=== PATIENT | female | born 1975 | race Caucasian/White ===

== ENCOUNTER 2019-01-31 07:25 | Inpatient (IN) | payer MEDICAID ==
[2019-01-27 11:20] LABS: ADD MAN DIFF? NO
[2019-01-27 11:32] LABS: BASOPHILS % 0.5 % (0.0-2.0); EOSINOPHILS # 0.3 10^3/ul (0.0-0.5); EOSINOPHILS % 4.4 % (0.0-7.0); HEMATOCRIT 39.5 % (37.0-47.0); HEMOGLOBIN 12.8 g/dl (12.0-16.0); LYMPHOCYTES # 1.7 10^3/ul (0.8-2.9); LYMPHOCYTES % 28.2 % (15.0-51.0); MEAN CORPUSCULAR HEMOGLOBIN 31.1 pg (29.0-33.0); MEAN CORPUSCULAR HGB CONC 32.4 g/dl (32.0-37.0); MEAN CORPUSCULAR VOLUME 95.9 fl (82.0-101.0); MEAN PLATELET VOLUME 9.5 fl (7.4-10.4); MONOCYTE # 0.3 10^3/ul (0.3-0.9); MONOCYTES % 5.4 % (0.0-11.0); NEUTROPHIL # 3.6 10^3/ul (1.6-7.5); NEUTROPHILS % 60.8 % (39.0-77.0); PLATELET COUNT 321 10^3/UL (140-415); RED BLOOD COUNT 4.12 10^6/ul (4.20-5.40); RED CELL DISTRIBUTION WIDTH 12.6 % (11.5-14.5)
[2019-01-27 12:01] LABS: ALANINE AMINOTRANSFERASE 31 IU/L (13-69); ALBUMIN 4.5 g/dl (3.3-4.9); ALBUMIN/GLOBULIN RATIO 1.18; ALKALINE PHOSPHATASE 56 IU/L (42-121); ANION GAP 11 (5-13); ASPARTATE AMINO TRANSFERASE 33 IU/L (15-46); BILIRUBIN,INDIRECT 0.4 mg/dl (0-1.1); BILIRUBIN,TOTAL 0.4 mg/dl (0.2-1.3); BLOOD UREA NITROGEN 17 mg/dl (7-20); CALCIUM 9.7 mg/dl (8.4-10.2); CARBON DIOXIDE 26 mmol/L (21-31); CHLORIDE 105 mmol/L (97-110); CREATININE 0.57 mg/dl (0.44-1.00); Estimated GFR > 60 mL/min (>60); GLUCOSE 93 mg/dl (70-220); SODIUM 142 mmol/L (135-144); TOTAL PROTEIN 8.3 g/dl (6.1-8.1)
[2019-01-27 12:03] LABS: INR 0.97; PARTIAL THROMBOPLASTIN TIME 27.2 Sec (23.0-35.0)
[2019-01-31] MEDS: CEFAZOLIN 1 GM/50 ML (PMX) 50 ML IVPB (09:00)
[2019-01-31] MEDS: SOD CHLORIDE 0.9% 1,000 ML IV (10:17)
[2019-01-31] MEDS ORDERED: FENTAnyl 50 MCG/ML VIAL ×2 (10:26→12:03)
[2019-01-31] MEDS ORDERED: CEFAZOLIN 1 GM INJ (10:26)
[2019-01-31] MEDS ORDERED: PROPOFOL 20 ML (10:26)
[2019-01-31] MEDS ORDERED: MIDAZOLAM 1 MG/ML 2 ML INJ (10:26)
[2019-01-31] MEDS ORDERED: FENTAnyl 50 MCG/ML VIAL IV (11:30)
[2019-01-31] MEDS ORDERED: HYDROmorphONE 1 MG/5 ML IV SYRINGE IV (11:30)
[2019-01-31] MEDS ORDERED: METOCLOPRAMIDE 10 MG INJ IV (11:30)
[2019-01-31] MEDS ORDERED: LABETALOL HCL 20MG INJ IV (11:30)
[2019-01-31] MEDS ORDERED: MEPERIDINE 25 MG INJ IV (11:30)
[2019-01-31] MEDS ORDERED: DIPHENHYDRAMINE 50 MG INJ IV (11:30)
[2019-01-31] MEDS ORDERED: OXYCODONE/ACETAMINOPHEN (5/325) TAB PO (11:30)
[2019-01-31] MEDS: ISOSULFAN BLUE 1% 5 ML INJ SC (11:43)
[2019-01-31] MEDS ORDERED: ROCURONIUM 50 MG INJ (12:03)
[2019-01-31] MEDS ORDERED: PHENYLephrine (100 MCG/ML) 10ML SYG (12:05)
[2019-01-31] MEDS ORDERED: ONDANSETRON 4 MG INJ (12:05)
[2019-01-31] MEDS ORDERED: EPHEDrine 25 MG/5 ML SYG (12:05)
[2019-01-31] MEDS ORDERED: DEXAMETHASONE 4 MG/ML 5 ML INJ (12:05)
[2019-01-31] MEDS ORDERED: METOCLOPRAMIDE 10 MG INJ (12:05)
[2019-01-31] MEDS ORDERED: GLYCOPYRROLATE 0.4 MG INJ (12:36)
[2019-01-31] MEDS ORDERED: NEOSTIGMINE 3 MG/3 ML SYRINGE (12:36)
[2019-01-31] MEDS ORDERED: ACETAMINOPHEN 1000MG/100ML IV 100 ML IVPB (13:00)
[2019-01-31] MEDS ORDERED: morphine 2 MG INJ IV (13:00)
[2019-01-31] MEDS: ONDANSETRON 4 MG INJ IV ×2 (13:08→15:19)
[2019-01-31] MEDS: HYDROmorphONE 1 MG/5 ML IV SYRINGE IV ×2 (13:08→13:13)
[2019-01-31] MEDS: FENTAnyl 50 MCG/ML VIAL IV (13:37)
[2019-01-31] MEDS: D5W-0.45 NACL + KCL 20 MEQ 1,000 ML IV ×2 (15:24→22:56)
[2019-01-31] MEDS ORDERED: PROPOFOL 200 MG INJ IV (15:53)
[2019-01-31] MEDS: CIPROFLOXACIN 500 MG TAB PO (18:57)
[2019-01-31] MEDS: HYDROCODONE/APAP (5/325) TAB PO (22:54)
[2019-02-01] MEDS ORDERED: HYDROCODONE/APAP (5/325) TAB PO (01:30)
[2019-02-01] MEDS: ZOLPIDEM 5 MG TAB PO (01:36)
[2019-02-01] MEDS: HYDROCODONE/APAP (5/325) TAB PO ×2 (03:46→12:18)
[2019-02-01] MEDS: CIPROFLOXACIN 500 MG TAB PO ×2 (06:33→17:56)
[2019-02-01] MEDS: D5W-0.45 NACL + KCL 20 MEQ 1,000 ML IV ×3 (06:33→16:10)
[2019-02-01] MEDS: ONDANSETRON 4 MG INJ IV (11:06)
== END 2019-02-01 17:58 | disposition home or self-care (01) | DRG 580 ==
LOC: SDS 07:25 → PP2 12:58
PROC: 0HBU0ZZ Excision of Left Breast, Open Approach (ICD-10-PCS; principal; 2019-01-31 11:00)
PROC: 07B60ZX Excision of Left Axillary Lymphatic, Open Approach, Diagnostic (ICD-10-PCS; 2019-01-31 11:00)
DX: C50.912 Malignant neoplasm of unspecified site of left female breast (principal); N39.0 Urinary tract infection, site not specified; R07.89 Other chest pain
CPT/HCPCS: 80053; 84703; 85025; 85610; 85730; 88307; 88331

== ENCOUNTER 2019-03-24 22:01 | Emergency (ER) | payer OTHER, MEDICAID ==
[2019-03-24] MEDS: MECLIZINE 12.5 MG TAB PO (22:41)
[2019-03-24 23:56] LABS: ADD MAN DIFF? NO
[2019-03-24] MEDS: SOD CHLORIDE 0.9% 1,000 ML IV (23:58)
[2019-03-24] MEDS: DIAZEPAM 5 MG TAB PO (23:58)
[2019-03-25 00:15] LABS: ANION GAP 12 (5-13); BLOOD UREA NITROGEN 11 mg/dl (7-20); CALCIUM 9.9 mg/dl (8.4-10.2); CARBON DIOXIDE 24 mmol/L (21-31); CHLORIDE 101 mmol/L (97-110); CREATININE 0.48 mg/dl (0.44-1.00); Estimated GFR > 60 mL/min (>60); GLUCOSE 96 mg/dl (70-220); SODIUM 137 mmol/L (135-144)
[2019-03-25 00:17] LABS: POTASSIUM 5.8 mmol/L (3.5-5.1)
[2019-03-25 00:22] LABS: BASOPHILS % 0.3 % (0.0-2.0); EOSINOPHILS # 0.2 10^3/ul (0.0-0.5); EOSINOPHILS % 1.5 % (0.0-7.0); HEMATOCRIT 42.5 % (37.0-47.0); HEMOGLOBIN 14.1 g/dl (12.0-16.0); LYMPHOCYTES # 2.2 10^3/ul (0.8-2.9); LYMPHOCYTES % 20.9 % (15.0-51.0); MEAN CORPUSCULAR HEMOGLOBIN 31.1 pg (29.0-33.0); MEAN CORPUSCULAR HGB CONC 33.2 g/dl (32.0-37.0); MEAN CORPUSCULAR VOLUME 93.6 fl (82.0-101.0); MEAN PLATELET VOLUME 10.5 fl (7.4-10.4); MONOCYTE # 0.6 10^3/ul (0.3-0.9); MONOCYTES % 5.5 % (0.0-11.0); NEUTROPHIL # 7.5 10^3/ul (1.6-7.5); NEUTROPHILS % 71.6 % (39.0-77.0); PLATELET COUNT 219 10^3/UL (140-415); RED BLOOD COUNT 4.54 10^6/ul (4.20-5.40); RED CELL DISTRIBUTION WIDTH 11.9 % (11.5-14.5)
[2019-03-25 00:22] LABS: WHITE BLOOD COUNT 10.5 10^3/ul (4.8-10.8)
[2019-03-25] MEDS: KETOROLAC 30 MG INJ IV (01:32)
== END 2019-03-25 01:39 | disposition home or self-care (01) ==
LOC: E/R 03-25 01:39
DX: R42 Dizziness and giddiness (principal); Z85.3 Personal history of malignant neoplasm of breast
CPT/HCPCS: 36415; 80048; 81025; 84132; 85025; 96374; 99284-25